=== PATIENT | male | born 1965 | race Two or more races ===

== ENCOUNTER 2025-01-08 16:26 | Emergency (ER) | payer OTHER, SELFPAY ==
[2025-01-08 16:31] VITALS: BP 165/90; PULSE 92; RESP 16; TEMP 36.4; O2SAT 99
--- NOTE | 2025-01-08 20:36 | ED_ITS ---
HPI - General Adult General Chief complaint: Wound/Laceration Stated complaint: right wrist lac Time Seen by Provider: 01/08/25 19:57 History of Present Illness HPI narrative: 59-year-old male present to the emergency department for evaluation for laceration to the right wrist. Patient dropped a plate and injured his right wrist. Tetanus is not up-to-date. Related Data Allergies Allergy/AdvReac Type Severity Reaction Status Date / Time hydrocodone AdvReac Vomiting Verified 01/08/25 21:14 morphine AdvReac Vomiting Verified 01/08/25 21:14 Penicillins AdvReac Vomiting Verified 01/08/25 21:14 Review of Systems Review of Systems: All systems reviewed & are unremarkable except as noted in HPI and below PMFSH Family History Family History (Updated 02/20/18 @ 13:39 by DOCTOR UNKNOWN) Mother Patient's mother is in good health Father Patient's father is in good health Social History Social History Smoking status: Never smoker Alcohol intake: current Exam Narrative: APPEARANCE: Well appearing, no pain, no distress, well-nourished. HEAD: normocephalic, atraumatic. EYES: PERRLA/EOMI, conjunctivae clear. NOSE: Normal no drainage EARS:TMS clear with good light reflex. THROAT: Pharynx clear, no exudate. NECK: Supple. No adenopathy, no masses. RESPIRATORY: Airway patent, respirations nonlabored. Clear to auscultation bilaterally, no rales, rhonchi, wheezing. CARDIOVASCULAR: Regular rate and rhythm without murmurs rubs or gallops. ABDOMINAL: Soft, nontender, nondistended, normal bowel sounds MUSCULOSKELETAL: Moves all extremities. Strength/ROM intact, No edema, No calf tenderness. NEURO: Alert. Cranial nerves II through XII intact. Good gait. Good coordination SKIN: Laceration to right wrist, neurovascularly intact Course Vital Signs Vital signs: Vital Signs Temperature 97.6 F 01/08/25 16:31 Pulse Rate 92 01/08/25 16:31 Respiratory Rate 16 01/08/25 16:31 Blood Pressure 165/90 H 01/08/25 16:31 Pulse Oximetry 99 01/08/25 16:31 Temperature 97.6 F 01/08/25 16:31 Pulse Rate 85 01/08/25 21:31 Respiratory Rate 17 01/08/25 21:31 Blood Pressure 142/86 H 01/08/25 21:31 Pulse Oximetry 98 01/08/25 21:31 Procedures Laceration Laceration 1: Date: 01/08/25 Time: 20:42 Site: upper extremity Side (If applicable): right Size (cm): 4 Description: linear Depth: simple, single layer Local Anesthetic: lidocaine 1% and with epi Amount of anesthesia used (mL): 3 Pre-repair: wound explored, irrigated and irrigated extensively ====== Skin Level ====== Skin layer closed with: nylon Size (cm): 4-0 Number of sutures: 4 Technique: simple, interrupted ====== Subcutaneous Layer ====== ====== Muscle Layer ====== ====== Tendon Layer ====== Medical Decision Making MDM Narrative Medical decision making narrative: Wrist laceration was repaired as described in the procedure note. Tetanus was updated. Patient was comfortable the plan for discharge and close follow-up. Differential Diagnosis Differential Diagnosis: Ulceration, arterial injury, venous injury, tendon injury, nerve injury Vital Signs Vital Signs: Vital Signs Temperature 97.6 F 01/08/25 16:31 Pulse Rate 92 01/08/25 16:31 Respiratory Rate 16 01/08/25 16:31 Blood Pressure 165/90 H 01/08/25 16:31 Pulse Oximetry 99 01/08/25 16:31 Temperature 97.6 F 01/08/25 16:31 Pulse Rate 85 01/08/25 21:31 Respiratory Rate 17 01/08/25 21:31 Blood Pressure 142/86 H 01/08/25 21:31 Pulse Oximetry 98 01/08/25 21:31 Discharge Plan Discharge Clinical Impression: Laceration Patient Disposition: Home, Self-Care Condition: Stable Instructions: Antibiotic Form, Laceration (ED) Additional Instructions: Wound care as directed. Sutures need to be removed in 7-10 days. Have close follow-up with your primary care physician. Patient Language: Colombian Follow-up/Referrals: PHYSICIAN NOT ON STAFF,NONSTAFF [Primary Care Provider] -
[2025-01-08] MEDS: Please add drug allergy info to patient profile. 1 EACH XX (21:14)
[2025-01-08] MEDS: TETANUS,DIPHTHERIA,AC PERTUSSIS ADULT (0.5 ML) BOOSTRIX IM (21:15)
[2025-01-08 21:31] VITALS: BP 142/86; PULSE 85; RESP 17; O2SAT 98
== END 2025-01-08 21:32 | disposition home or self-care (01) ==
PROVIDERS: Emergency Provider Emergency Medicine
DX: S61.511A Laceration without foreign body of right wrist, initial encounter (principal); Z23 Encounter for immunization; W20.8XXA Other cause of strike by thrown, projected or falling object, initial encounter
CPT/HCPCS: 12002; 90471; 90715; 99282